=== PATIENT | male | born 1990 | race Two or more races ===

== ENCOUNTER 2024-09-11 15:42 | Inpatient (IN) | payer OTHER ==
[~2024-09-11] VITALS: Ht 180.3 cm; Wt 68.0 kg
--- NOTE | 2024-09-11 16:22 | NUR ---
SE RECIBE PTE ALERTA, ORIENTADO X3 Y AMBULANDO. PTE PRESENTA REFERIDO POR DR. CHLOE RIVERA PARA ADMICION. SE MIDEN S/V Y SE UBICA.
[2024-09-11] MEDS ORDERED: PANTOPRAZOLE SODIUM 40 MG/VIAL VIAL IV ONE (17:00)
[2024-09-11] MEDS ORDERED: CIPROFLOXACIN IN 5 % DEXTROSE 400 MG/200 ML PIGGYBAG IV ONE (17:00)
[2024-09-11] MEDS ORDERED: METRONIDAZOLE/SODIUM CHLORIDE 500 MG/100 ML PIGGYBACK IV ONE (17:00)
[2024-09-11] MEDS ORDERED: 0.9 % SODIUM CHLORIDE 1,000 ML IV ONE (17:00)
--- NOTE | 2024-09-11 17:09 | NUR ---
MS THOMPSON ORIENTA PTE SOBRE TX MEDICO EL CUAL REFIERE ENTENDER.SE LE EXTRAEN MUESTRAS BAJO MEDIDAS ASEPTICAS,SE CANALIZA Y SE ADMINISTRAN MEDICAMENTOS.
[2024-09-11 17:32] LABS: BASO % 0.2 % (0.1-1.2); EOS # 0.04 (0.04-0.54); EOS % 0.3 % (0.7-7.0); LYMPH # 1.41 (1.18-3.74); LYMPH % 11.2 % (19.3-53.1); MEAN PLATELET VOLUME 10.00 fl (9.4-12.4); MONO # 0.98 (0.24-0.82); MONO % 7.8 % (4.7-12.5); NEUT # 10.12 (1.56-6.13); NEUT % 80.3 % (34.0-71.1); RED CELL DISTRIBUTION WIDTH 13.7 % (11.6-14.4)
[2024-09-11 17:46] LABS: URINE APPEARANCE Clear; URINE BILIRRUBIN Negative (NEGATIVE); URINE BLOOD Moderate; URINE COLOR Yellow; URINE GLUCOSE Negative (NEGATIVE); URINE KETONE Negative (NEGATIVE); URINE LEUKOCYTE Negative; URINE NITRATE Negative; URINE PROTEIN Negative (NEGATIVE); URINE UROBILINOGEN 0.2 E.U./dl
[2024-09-11 17:49] LABS: URINE RBC 129.6 uL (0.0-20.8); URINE WBC 10.7 uL (0.0-23.2)
[2024-09-11 17:57] LABS: ALT/SGPT 23.0 U/L (12-78); AST/SGOT 14.0 U/L (15-37); BILIRUBIN TOTAL 0.45 mg/dL (0.3-1.2); BUN CREA RATIO 9.0 (7.0-25.0); CREATININE SERUM 0.82 mg/dL (0.70-1.30); GFR 108.88; GLOBULINA 4.4 G/DL (2.4-3.5); GLUCOSE FASTING 85.0 mg/dL (65-100); OSMOLALITY SERUM 280.0 MOSM/KG (275-295)
[2024-09-11 18:00] LABS: INR 1.06
[2024-09-11 18:04] LABS: URINE BACTERIA 2.3 uL (0.0-1933); URINE CAST 0.00 uL (0.0-1.40); URINE EPITHELIAL CELLS 0.1 uL (0.0-38.8)
[2024-09-11] MEDS ORDERED: 0.9 % SODIUM CHLORIDE 1,000 ML IV SCH (21:15)
[2024-09-11] MEDS ORDERED: ONDANSETRON HCL 4 MG in 0.9 % SODIUM CHLORIDE 50 ML IV PRN (21:30)
[2024-09-11] MEDS ORDERED: MORPHINE SULFATE 4 MG/ML CARTRIDGE IV PRN (21:30)
[2024-09-12] MEDS ORDERED: ENOXAPARIN SODIUM 40 MG/0.4 ML SYRINGE SUBCUTANEO SCH (09:00)
[2024-09-12] MEDS ORDERED: FAMOTIDINE/PF 20 MG in 0.9 % SODIUM CHLORIDE 8 ML IV PUSH SCH (09:00)
[2024-09-12] MEDS ORDERED: CIPROFLOXACIN IN 5 % DEXTROSE 200 ML IV SCH (09:00)
[2024-09-12 09:04] LABS: INR 1.05
[2024-09-12] MEDS ORDERED: FLUCONAZOLE IN NACL,ISO-OSM 200 MG/100 ML PIGGYBAG IV STA (14:25)
[2024-09-12] MEDS ORDERED: MIDAZOLAM HCL 2 MG/2 ML VIAL IV PUSH ONE (15:15)
[2024-09-12] MEDS ORDERED: fentaNYL CITRATE 50 MCG/ML AMPUL IV PUSH ONE (15:15)
[2024-09-12 15:56] LABS: BUN CREA RATIO 10.0 (7.0-25.0); CHOL HDL RATIO 2.9 (0-5.0); CREATININE SERUM 0.7 mg/dL (0.70-1.30); GFR 130.69; GLUCOSE FASTING 81.0 mg/dL (65-100); HDL 49.0 mg/dl (40-60); LDL 81.0 mg/dl (0-130); OSMOLALITY SERUM 280.0 MOSM/KG (275-295); VLDL 9.0 (0-39)
[2024-09-12] MEDS ORDERED: AA 2.36%/D6.8W/FAT/E-LYTES NO9 1,440 ML IV SCH (17:00)
[2024-09-12] MEDS ORDERED: LACTOBACILLUS ACIDOPHILUS 1 CAP CAP PO SCH (17:00)
[2024-09-12] MEDS ORDERED: MEROPENEM 500 MG/VIAL VIAL IV SCH (18:00)
[2024-09-12 22:46] VITALS: BP 116/75
[2024-09-13 02:33] VITALS: BP 102/60; O2SAT 98
[2024-09-13 08:49] VITALS: BP 133/78; O2SAT 100
[2024-09-13] MEDS ORDERED: FLUCONAZOLE IN NACL,ISO-OSM 100 ML IV SCH (09:00)
[2024-09-13 17:41] VITALS: BP 123/77
[2024-09-14 01:19] VITALS: BP 111/65; O2SAT 96
[2024-09-14 08:46] VITALS: BP 120/75; O2SAT 99
[2024-09-14 18:38] VITALS: BP 132/80; O2SAT 100
[2024-09-15 03:16] VITALS: BP 108/67; O2SAT 98
[2024-09-15] MEDS ORDERED: DIATRIZOATE MEGLUMINE, SODIUM 30 ML BOTTLE PO NR (14:15)
[2024-09-15 16:35] VITALS: BP 104/61; O2SAT 100
[2024-09-16 03:06] VITALS: BP 120/76; O2SAT 98
[2024-09-16 07:29] LABS: BASO % 0.3 % (0.1-1.2); EOS # 0.33 (0.04-0.54); EOS % 5.5 % (0.7-7.0); LYMPH # 1.47 (1.18-3.74); LYMPH % 24.7 % (19.3-53.1); MEAN PLATELET VOLUME 11.10 fl (9.4-12.4); MONO # 0.87 (0.24-0.82); NEUT # 3.25 (1.56-6.13); NEUT % 54.7 % (34.0-71.1); RED CELL DISTRIBUTION WIDTH 13.3 % (11.6-14.4)
[2024-09-16 07:39] LABS: MONO % 14.6 % (4.7-12.5)
[2024-09-16 07:49] LABS: BUN CREA RATIO 10.0 (7.0-25.0); CREATININE SERUM 0.58 mg/dL (0.70-1.30); GFR 162.36; GLUCOSE FASTING 98.0 mg/dL (65-100); OSMOLALITY SERUM 279.0 MOSM/KG (275-295)
[2024-09-16 08:53] VITALS: BP 118/70; O2SAT 100
[2024-09-16] MEDS ORDERED: DIATRIZOATE MEGLUMINE, SODIUM 30 ML BOTTLE PO NR (09:00)
[2024-09-16 17:28] VITALS: BP 127/89; O2SAT 100
[2024-09-17 00:06] VITALS: BP 125/75; O2SAT 97
[2024-09-17 06:28] LABS: BASO % 0.2 % (0.1-1.2); EOS # 0.21 (0.04-0.54); EOS % 2.3 % (0.7-7.0); LYMPH # 1.37 (1.18-3.74); LYMPH % 15.1 % (19.3-53.1); MEAN PLATELET VOLUME 11.10 fl (9.4-12.4); MONO # 1.11 (0.24-0.82); NEUT # 6.37 (1.56-6.13); NEUT % 70.0 % (34.0-71.1); RED CELL DISTRIBUTION WIDTH 13.5 % (11.6-14.4)
[2024-09-17 06:40] LABS: INR 1.09
[2024-09-17 06:48] LABS: MONO % 12.2 % (4.7-12.5)
[2024-09-17 07:19] LABS: ALT/SGPT 75.0 U/L (12-78); AST/SGOT 75.0 U/L (15-37); BILIRUBIN TOTAL 0.43 mg/dL (0.3-1.2); BILIRUBIN,CONJUGATED 0.11 mg/dL (0.0-0.2); BUN CREA RATIO 13.0 (7.0-25.0); CHOL HDL RATIO 2.9 (0-5.0); CREATININE SERUM 0.56 mg/dL (0.70-1.30); GFR 169.07; GLOBULINA 3.5 G/DL (2.4-3.5); GLUCOSE FASTING 88.0 mg/dL (65-100); HDL 38.0 mg/dl (40-60); LDL 57.0 mg/dl (0-130); OSMOLALITY SERUM 279.0 MOSM/KG (275-295); VLDL 16.0 (0-39)
[2024-09-17 09:03] LABS: UREA CLEARANCE 47.6 ML/MIN
[2024-09-17 10:03] VITALS: BP 112/66; O2SAT 100
[2024-09-17] MEDS ORDERED: ONDANSETRON HCL 4 MG in 0.9 % SODIUM CHLORIDE 50 ML IV PRN (12:30)
[2024-09-17] MEDS ORDERED: LACTOBACILLUS ACIDOPHILUS 1 CAP CAP PO SCH (13:00)
[2024-09-17 17:14] VITALS: BP 120/73; O2SAT 100
[2024-09-18] VITALS: BP 111/61; O2SAT 98
[2024-09-18 09:17] VITALS: BP 117/73; O2SAT 100
[2024-09-18 17:06] VITALS: BP 126/72; O2SAT 100
[2024-09-19 02:15] VITALS: BP 101/62; O2SAT 98
[2024-09-19 09:25] VITALS: BP 122/82; O2SAT 99
[2024-09-19 17:59] VITALS: BP 97/60; O2SAT 98
[2024-09-20 02:21] VITALS: BP 110/70; O2SAT 97
[2024-09-20 10:44] VITALS: BP 111/73; O2SAT 98
[2024-09-20 17:09] VITALS: BP 100/61; O2SAT 98
[2024-09-20] MEDS ORDERED: MEROPENEM 500 MG/VIAL VIAL IV SCH (18:00)
[2024-09-21 02:13] VITALS: BP 124/77; O2SAT 98
[2024-09-21 09:13] VITALS: BP 118/75; O2SAT 99
[2024-09-21 17:45] VITALS: BP 104/66; O2SAT 97
[2024-09-22 02:42] VITALS: BP 109/69; O2SAT 99
[2024-09-22] MEDS ORDERED: DIATRIZOATE MEGLUMINE, SODIUM 30 ML BOTTLE PO STA (09:30)
[2024-09-22 09:35] VITALS: BP 94/60
[2024-09-22 18:00] VITALS: BP 129/72
[2024-09-23 00:31] VITALS: BP 106/68
[2024-09-23 09:13] VITALS: BP 110/66; O2SAT 99
[2024-09-23 12:10] LABS: BASO % 0.2 % (0.1-1.2); EOS # 0.12 (0.04-0.54); EOS % 2.9 % (0.7-7.0); LYMPH # 1.25 (1.18-3.74); LYMPH % 30.5 % (19.3-53.1); MEAN PLATELET VOLUME 11.50 fl (9.4-12.4); MONO # 0.52 (0.24-0.82); NEUT # 2.20 (1.56-6.13); NEUT % 53.7 % (34.0-71.1); RED CELL DISTRIBUTION WIDTH 13.5 % (11.6-14.4)
[2024-09-23 12:12] LABS: MONO % 12.7 % (4.7-12.5)
[2024-09-23 12:56] LABS: ALT/SGPT 52.0 U/L (12-78); AST/SGOT 21.0 U/L (15-37); BILIRUBIN TOTAL 0.52 mg/dL (0.3-1.2); BUN CREA RATIO 16.0 (7.0-25.0); CREATININE SERUM 0.56 mg/dL (0.70-1.30); GFR 169.07; GLOBULINA 3.2 G/DL (2.4-3.5); GLUCOSE FASTING 86.0 mg/dL (65-100); OSMOLALITY SERUM 283.0 MOSM/KG (275-295)
[2024-09-23 18:20] VITALS: BP 114/74
[2024-09-24 00:37] VITALS: BP 110/69
[2024-09-24 10:17] VITALS: BP 103/66; O2SAT 97
[2024-09-24 19:12] VITALS: BP 116/72
[2024-09-24 19:13] VITALS: BP 116/72
[2024-09-25 02:35] VITALS: BP 102/60; O2SAT 95
[2024-09-25 08:40] VITALS: BP 100/65
[2024-09-25 19:43] VITALS: BP 109/64
[2024-09-26 02:27] VITALS: BP 112/71; O2SAT 95
[2024-09-26 08:31] VITALS: BP 110/66
== END 2024-09-26 13:58 | disposition home or self-care (01) | DRG 392 ==
LOC: ER 15:42 → MEDI 21:45 → SEC-K 21:45 → MEDI 09-12 11:14 → MEDJ 09-19 13:02
PROVIDERS: General Practice; Internal Medicine; ADMIT Internal Medicine; ATTEND Internal Medicine
PROC: 0W9G30Z Drainage of Peritoneal Cavity with Drainage Device, Percutaneous Approach (ICD-10-PCS; principal; 2024-09-12)
PROC: 02HV33Z Insertion of Infusion Device into Superior Vena Cava, Percutaneous Approach (ICD-10-PCS; 2024-09-13)
PROC: BW21ZZZ Computerized Tomography (CT Scan) of Abdomen and Pelvis (ICD-10-PCS; 2024-09-16)
PROC: BW21YZZ Computerized Tomography (CT Scan) of Abdomen and Pelvis using Other Contrast (ICD-10-PCS; 2024-09-22)
DX: K57.20 Diverticulitis of large intestine with perforation and abscess without bleeding (principal)

== ENCOUNTER 2025-01-03 12:15 | Inpatient (IN) | payer OTHER ==
[~2025-01-03] VITALS: Ht 180.3 cm; Wt 68.9 kg
[2025-01-03 14:20] LABS: BASO % 0.3 % (0.1-1.2); EOS # 0.18 (0.04-0.54); EOS % 2.8 % (0.7-7.0); LYMPH # 1.72 (1.18-3.74); LYMPH % 26.7 % (19.3-53.1); MEAN PLATELET VOLUME 11.20 fl (9.4-12.4); MONO # 0.64 (0.24-0.82); MONO % 10.0 % (4.7-12.5); NEUT # 3.86 (1.56-6.13); NEUT % 60.0 % (34.0-71.1); RED CELL DISTRIBUTION WIDTH 13.8 % (11.6-14.4)
[2025-01-03 14:40] VITALS: BP 134/80
[2025-01-03 14:42] LABS: INR 0.98
[2025-01-03 15:15] LABS: URINE APPEARANCE Cloudy; URINE BILIRRUBIN Negative (NEGATIVE); URINE BLOOD Small; URINE COLOR Yellow; URINE GLUCOSE Negative (NEGATIVE); URINE KETONE Negative (NEGATIVE); URINE LEUKOCYTE Negative; URINE NITRATE Negative; URINE PROTEIN Negative (NEGATIVE); URINE UROBILINOGEN 0.2 E.U./dl
[2025-01-03 15:17] LABS: URINE RBC 78.8 uL (0.0-20.8); URINE WBC 1.9 uL (0.0-23.2)
[2025-01-03 15:20] LABS: URINE BACTERIA 1.1 uL (0.0-1933); URINE CAST 0.00 uL (0.0-1.40); URINE EPITHELIAL CELLS 0.4 uL (0.0-38.8)
[2025-01-03 15:23] LABS: ALT/SGPT 81.0 U/L (12-78); AST/SGOT 38.0 U/L (15-37); BILIRUBIN TOTAL 0.37 mg/dL (0.3-1.2); BUN CREA RATIO 23.0 (7.0-25.0); CREATININE SERUM 0.75 mg/dL (0.70-1.30); GFR 120.69; GLOBULINA 3.6 G/DL (2.4-3.5); GLUCOSE FASTING 64.0 mg/dL (65-100); OSMOLALITY SERUM 283.0 MOSM/KG (275-295)
[2025-01-10] MEDS ORDERED: LIDOCAINE HCL 1%/EPINEPHRINE 20ML VIAL IJ ONE (08:30)
[2025-01-10] MEDS ORDERED: METRONIDAZOLE/SODIUM CHLORIDE 500 MG/100 ML PIGGYBACK IV ONE (08:30)
[2025-01-10] MEDS ORDERED: CEFTRIAXONE SODIUM 2,000 MG VIAL IV ONE (08:30)
[2025-01-10] MEDS ORDERED: BUPIVACAINE HCL 30 ML VIAL IJ ONE (08:30)
[2025-01-10] MEDS ORDERED: DEXTROSE 50 % IN WATER 0.5 G/ML DISP.SYRIN IV PRN (10:15)
[2025-01-10] MEDS ORDERED: MORPHINE SULFATE 4 MG/ML CARTRIDGE IV PRN (10:15)
[2025-01-10] MEDS ORDERED: 0.9 % SODIUM CHLORIDE 1,000 ML IV SCH (10:15)
[2025-01-10] MEDS ORDERED: ONDANSETRON HCL 2 MG/ML VIAL IV PRN (10:15)
[2025-01-10] MEDS ORDERED: OxyCODONE HCL 5 MG TABLET (ROXICODONE) PO PRN (10:15)
[2025-01-10] MEDS ORDERED: ONDANSETRON HCL 2 MG/ML VIAL IV ONE ×2 (10:45→11:20)
[2025-01-10 11:16] LABS: BASO % 0.2 % (0.1-1.2); EOS # 0.01 (0.04-0.54); EOS % 0.1 % (0.7-7.0); LYMPH # 0.99 (1.18-3.74); LYMPH % 7.9 % (19.3-53.1); MEAN PLATELET VOLUME 11.00 fl (9.4-12.4); MONO # 0.73 (0.24-0.82); MONO % 5.9 % (4.7-12.5); NEUT # 10.66 (1.56-6.13); NEUT % 85.5 % (34.0-71.1); RED CELL DISTRIBUTION WIDTH 13.2 % (11.6-14.4)
[2025-01-10 11:47] LABS: BUN CREA RATIO 12.0 (7.0-25.0); CREATININE SERUM 0.76 mg/dL (0.70-1.30); GFR 118.86; GLUCOSE FASTING 166.0 mg/dL (65-100); OSMOLALITY SERUM 278.0 MOSM/KG (275-295)
[2025-01-10] MEDS ORDERED: HYOSCYAMINE SULFATE 0.125 MG TAB.SUBL SL SCH (13:00)
[2025-01-10] MEDS ORDERED: ACETAMINOPHEN 500 MG GEL..CAP PO SCH (14:00)
[2025-01-10 14:12] VITALS: BP 133/86; O2SAT 99
[2025-01-10 16:00] VITALS: BP 122/76; O2SAT 97
[2025-01-10] MEDS ORDERED: GABAPENTIN 300 MG CAPSULE PO SCH (17:00)
[2025-01-10] MEDS ORDERED: METRONIDAZOLE/SODIUM CHLORIDE 500 MG/100 ML PIGGYBACK IV SCH (17:00)
[2025-01-10] MEDS ORDERED: CELECOXIB 200 MG CAPSULE PO SCH (21:00)
[2025-01-10] MEDS ORDERED: FAMOTIDINE/PF 20 MG/2 ML VIAL IV PUSH SCH (21:00)
[2025-01-11] VITALS: BP 123/73; O2SAT 98
[2025-01-11 06:25] LABS: BASO % 0.1 % (0.1-1.2); EOS # 0.00 (0.04-0.54); EOS % 0.0 % (0.7-7.0); LYMPH # 1.20 (1.18-3.74); LYMPH % 9.1 % (19.3-53.1); MEAN PLATELET VOLUME 11.60 fl (9.4-12.4); MONO # 2.41 (0.24-0.82); NEUT # 9.52 (1.56-6.13); NEUT % 72.2 % (34.0-71.1); RED CELL DISTRIBUTION WIDTH 13.2 % (11.6-14.4)
[2025-01-11 06:36] LABS: MONO % 18.3 % (4.7-12.5)
[2025-01-11 06:52] LABS: BUN CREA RATIO 10.0 (7.0-25.0); CREATININE SERUM 0.89 mg/dL (0.70-1.30); GFR 99.06; GLUCOSE FASTING 101.0 mg/dL (65-100); OSMOLALITY SERUM 275.0 MOSM/KG (275-295)
[2025-01-11 08:04] VITALS: BP 130/77; O2SAT 99
[2025-01-11 16:28] VITALS: BP 120/65; O2SAT 96
[2025-01-11] MEDS ORDERED: NICOTINE 14 MG/24 HR TD SCH (17:00)
[2025-01-11] MEDS ORDERED: ENOXAPARIN SODIUM 40 MG/0.4 ML SYRINGE SUBCUTANEO SCH (17:00)
[2025-01-11] MEDS ORDERED: MEROPENEM 500 MG/VIAL VIAL IV SCH (21:17)
[2025-01-12 00:08] VITALS: BP 120/72; O2SAT 99
[2025-01-12 07:53] LABS: BASO % 0.2 % (0.1-1.2); EOS # 0.03 (0.04-0.54); EOS % 0.3 % (0.7-7.0); LYMPH # 1.17 (1.18-3.74); LYMPH % 11.1 % (19.3-53.1); MEAN PLATELET VOLUME 11.30 fl (9.4-12.4); MONO # 1.59 (0.24-0.82); NEUT # 7.68 (1.56-6.13); NEUT % 73.0 % (34.0-71.1); RED CELL DISTRIBUTION WIDTH 13.1 % (11.6-14.4)
[2025-01-12 08:06] LABS: ALT/SGPT 45.0 U/L (12-78); AST/SGOT 23.0 U/L (15-37); BILIRUBIN TOTAL 0.95 mg/dL (0.3-1.2); BUN CREA RATIO 16.0 (7.0-25.0); CREATININE SERUM 0.77 mg/dL (0.70-1.30); GFR 117.08; GLOBULINA 3.3 G/DL (2.4-3.5); GLUCOSE FASTING 78.0 mg/dL (65-100); OSMOLALITY SERUM 278.0 MOSM/KG (275-295)
[2025-01-12 08:31] LABS: MONO % 15.1 % (4.7-12.5)
[2025-01-12] MEDS ORDERED: ENOXAPARIN SODIUM 40 MG/0.4 ML SYRINGE SUBCUTANEO SCH (09:00)
[2025-01-12 09:11] VITALS: BP 108/63; O2SAT 98
[2025-01-12 17:00] VITALS: BP 112/68; O2SAT 98
[2025-01-12] MEDS ORDERED: OxyCODONE HCL 5 MG TABLET (ROXICODONE) PO PRN (22:45)
[2025-01-13 00:12] VITALS: BP 115/69; O2SAT 97
[2025-01-13 08:20] VITALS: BP 116/73; O2SAT 98
[2025-01-13] MEDS ORDERED: NEURONTIN300 MG PO (11:57)
[2025-01-13] MEDS ORDERED: TYLENOL ARTHRI650 MG PO (11:57)
== END 2025-01-13 14:13 | disposition home or self-care (01) | DRG 331 ==
LOC: SURG 01-10 06:00 → O/R 01-10 06:00 → SURH 01-10 08:45 → SURG 01-10 12:57
PROVIDERS: Internal Medicine Infectious Disease; ADMIT Surgery; ATTEND Surgery
PROC: 0DBP4ZZ Excision of Rectum, Percutaneous Endoscopic Approach (ICD-10-PCS; 2025-01-10)
PROC: 0DTN4ZZ Resection of Sigmoid Colon, Percutaneous Endoscopic Approach (ICD-10-PCS; principal; 2025-01-10 08:45)
DX: K57.20 Diverticulitis of large intestine with perforation and abscess without bleeding (principal)